=== PATIENT | female | born 1970 | race Caucasian/White ===

== ENCOUNTER 2023-10-18 20:39 | Emergency (ER) | payer MEDICAID ==
[~2023-10-18] VITALS: Ht 154.9 cm; Wt 62.7 kg
[2023-10-18 21:01] VITALS: TEMP 98.2
[2023-10-18 21:29] LABS: BASOPHILS % (AUTO) 0.5 % (0.0-2.0); EOSINOPHILS % (AUTO) 3.3 % (1.0-6.0); HEMATOCRIT 38.4 % (36-46); HEMOGLOBIN 13.3 g/dL (12.0-16.0); LYMPHOCYTES # (AUTO) 2.8 K/uL (1.0-4.8); LYMPHOCYTES % (AUTO) 32.7 % (22.0-44.0); MEAN CORPUSCULAR HEMOGLOBIN 29.1 pg (26.0-34.0); MEAN CORPUSCULAR HGB CONC 34.7 G/dL (31.0-37.0); MEAN CORPUSCULAR VOLUME 84 fL (80-100); MONOCYTES # (AUTO) 0.7 K/uL (0.1-1.0); MONOCYTES % (AUTO) 8.7 % (2.0-9.0); NEUTROPHILS # (AUTO) 4.6 K/uL (1.8-7.7); NEUTROPHILS % (AUTO) 54.8 % (40.0-70.0); PLATELET COUNT (AUTO) 279 K/uL (150-450); RED BLOOD CELL COUNT(AUTO) 4.59 MIL/uL (4.00-5.20); RED CELL DISTRIBUTION WIDTH 13.1 % (11.5-14.5); WHITE BLOOD COUNT (AUTO) 8.5 K/uL (4.5-11.0)
[2023-10-18 21:30] VITALS: BP 134/77; PULSE 82; RESP 16
[2023-10-18 21:37] LABS: ANION GAP 8 mmol/L (8-16); CALCIUM, TOTAL 8.7 mg/dL (8.8-10.5); CARBON DIOXIDE 27 mmol/L (22-29); CHLORIDE 103 mmol/L (98-107); GLOMERULAR FILTR. RATE CALC > 60 mL/min (>60); GLUCOSE,RANDOM 132 mg/dL (70-110); POTASSIUM 3.4 mmol/L (3.5-5.1); SODIUM SERUM 138 mmol/L (136-145); UREA NITROGEN, BLOOD 12 mg/dL (7-18)
[2023-10-18 21:44] LABS: ALANINE AMINOTRANSFERASE 37 U/L (12-78); ALBUMIN 3.6 g/dL (3.4-5.0); ALKALINE PHOSPHATASE 87 U/L (46-116); ASPARTATE AMINOTRANSFERASE 26 U/L (15-37); BILIRUBIN,TOTAL 0.2 mg/dL (0.1-1.0); TOTAL PROTEIN, SERUM 7.7 g/dL (6.4-8.2)
[2023-10-18 21:46] LABS: TROPONIN I-HIGH SENSITIVITY Less Than 4 ng/L (<51)
[2023-10-18 21:47] LABS: B-TYPE NATRIURETIC PEPTIDE < 5 pg/mL (0-100)
== END 2023-10-18 22:10 | disposition home or self-care (01) ==
LOC: EMS 20:39
DX: F41.9 Anxiety disorder, unspecified (principal); R06.00 Dyspnea, unspecified; R42 Dizziness and giddiness; R11.2 Nausea with vomiting, unspecified
CPT/HCPCS: 71045; 80053; 83880; 84484; 85025; 93005; 99285; 36415-L1; 36415-TC

== ENCOUNTER 2024-09-22 03:35 | Emergency (ER) | payer MEDICAID ==
[~2024-09-22] VITALS: Ht 152.4 cm; Wt 18.2 kg
[~2024-09-22 03:35] MED LIST: ACET-66 PO; DIPH-1130 PO; ONDA-104 PO
[2024-09-22 03:47] VITALS: BP 137/84; PULSE 94; RESP 16; TEMP 98; O2SAT 98
[2024-09-22] MEDS ORDERED: TRAM50TA5 PO (04:40)
== END 2024-09-22 05:05 | disposition home or self-care (01) ==
LOC: EMS 03:37
DX: M25.562 Pain in left knee (principal)
CPT/HCPCS: 99283